=== PATIENT | female | born 1995 | race Caucasian/White ===

== ENCOUNTER 2018-01-22 23:27 | Emergency (ER) | payer OTHER ==
[~2018-01-22] VITALS: Ht 154.9 cm; Wt 76.2 kg
[2018-01-22 23:32] VITALS: BP 139/86; Ht 154.9 cm; Wt 76.2 kg
== END 2018-01-23 00:33 | disposition home or self-care (01) ==
LOC: ED 23:27
DX: O99.612 Diseases of the digestive system complicating pregnancy, second trimester (principal); O23.42 Unspecified infection of urinary tract in pregnancy, second trimester; Z3A.15 15 weeks gestation of pregnancy